=== PATIENT | male | born 1990 | race Caucasian/White ===

== ENCOUNTER 2023-02-25 12:52 | Emergency (ER) | payer OTHER ==
[2023-02-25 13:13] VITALS: BP 126/98; PULSE 93; TEMP 98
[2023-02-25] MEDS ORDERED: TORAdol 30 mg Injection IM ONE (13:21)
[2023-02-25] MEDS ORDERED: Norflex 60 MG/2 ML IM ONE (13:21)
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
[2023-02-25] MEDS ORDERED: TORAdol 30 mg Injection ONE (13:43)
[2023-02-25] MEDS ORDERED: Norflex 60 MG/2 ML ONE (13:43)
[2023-02-25 16:42] VITALS: RESP 17
--- NOTE | 2023-02-25 18:44 | XRAY ---
Indication: Pain. No known injury. Comparison: September 07, 2020 3 view lumbar spine unchanged again demonstrating minimal levoscoliosis, tiny L3-L4 anterior endplate spurring, and minimal L5-S1 disc space narrowing. No new/acute findings.
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
--- NOTE | 2023-02-25 18:46 | XRAY ---
Indication: Pain. No known injury. Comparison: August 06, 2020 3 view cervical spine unchanged again demonstrating minimal levoscoliosis centered at cervical thoracic junction. Vertebral body heights/disc spaces maintained . No new/acute abnormalities.
== END 2023-02-25 17:16 | disposition home or self-care (01) ==
LOC: ED 12:52
DX: M54.50 Low back pain, unspecified (principal); Z79.899 Other long term (current) drug therapy; Z28.310 Unvaccinated for COVID-19; Z72.0 Tobacco use
CPT/HCPCS: 72040; 72072; 72100; 96372; 99283; J1885; J2360